=== PATIENT | male | born 1950 | race Caucasian/White ===

== ENCOUNTER 2016-09-06 07:49 | Emergency (ER) | payer MEDICARE ==
[2016-09-06] MEDS ORDERED: Acetaminophen TAB* 325 MG PO ONE (08:28)
--- NOTE | 2016-09-06 08:51 | UC ---
Knee Pain HPI - HPI Summary HPI Summary: patient sat on a low stool felt his left knee"snap like a branch" has had swelling and pain, not able to bear weight came in on crutches. - History of Current Complaint Chief Complaint: UCLowerExtremity Stated Complaint: KNEE PAIN Time Seen by Provider: 09/06/16 08:20 Hx Obtained From: Patient Onset/Duration: Sudden Onset, Lasting Days Severity Initially: Moderate Severity Currently: Severe Pain Intensity: 8 Pain Scale Used: 0-10 Numeric Character: Aching, Throbbing, Stiffness Aggravating Factor(s): Movement, Weight Bearing, Prolonged Standing, Stairs Alleviating Factor(s): Nothing Associated Signs And Symptoms: Positive: Swelling Able to Bear Weight: No - Risk Factors Septic Arthritis Risk Factor: Negative Gout Risk Factor: Age ^ 39, Male, DM, HTN - Allergies/Home Medications Allergies/Adverse Reactions: Allergies Allergy/AdvReac Type Severity Reaction Status Date / Time No Known Allergies Allergy Verified 11/29/14 11:17 PMH/Surg Hx/FS Hx/Imm Hx Previously Healthy: Yes Endocrine History Of: Reports: Diabetes - type 2 Denies: Thyroid Disease Cardiovascular History Of: Reports: Hypertension Denies: Cardiac Disorders Respiratory History Of: Denies: COPD, Asthma GI/ History Of: Denies: Ulcer - Surgical History Surgical History: Yes Surgery Procedure, Year, and Place: appendectomy, hernia repair, 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 - Family History Known Family History: Positive: Hypertension, Diabetes - Social History Alcohol Use: None Substance Use Type: None Smoking Status (MU): Heavy Every Day Tobacco Smoker Type: Cigarettes Amount Used/How Often: 1 1/2 PPD When Did the Patient Quit Smoking/Using Tobacco: 07/24/14 Household Exposure Type: Cigarettes Review of Systems Constitutional: Negative Skin: Negative Eyes: Negative ENT: Negative Respiratory: Negative Cardiovascular: Negative Gastrointestinal: Negative Genitourinary: Negative Motor: Negative Neurovascular: Negative Musculoskeletal: Arthralgia, Decreased ROM, Edema, Myalgia Neurological: Negative Psychological: Negative All Other Systems Reviewed And Are Negative: Yes Physical Exam Triage Information Reviewed: Yes Appearance: Well-Appearing, Well-Nourished, Pain Distress Vital Signs: Initial Vital Signs Temp 98.7 F 09/06/16 08:11 Pulse 94 09/06/16 08:11 Resp 16 09/06/16 08:11 BP 118/86 09/06/16 08:11 Pulse Ox 99 09/06/16 08:11 Vital Signs Reviewed: Yes Eye Exam: Normal Eyes: Positive: Conjunctiva Clear ENT Exam: Normal ENT: Positive: Normal ENT inspection, Hearing grossly normal, Pharynx normal, TMs normal Dental Exam: Normal Neck exam: Normal Neck: Positive: Supple, Nontender, No Lymphadenopathy Respiratory Exam: Normal Respiratory: Positive: Chest non-tender, Lungs clear, Normal breath sounds Cardiovascular Exam: Normal Cardiovascular: Positive: RRR, No Murmur, Pulses Normal Abdominal Exam: Normal Abdomen Description: Positive: Nontender, No Organomegaly, Soft Bowel Sounds: Positive: Present Musculoskeletal Exam: Normal Musculoskeletal: Positive: Strength Limited @ - left knee, not able to bear weight , RROM not able to perform, ROM Limited @ - extention and felxion are limited, Edema @ - generallied edema noted in left knee, Other: - + mc murrays, + pain with varus stress Neurological Exam: Normal Psychological Exam: Normal Skin Exam: Normal Knee Pain Course/Dx - Course Course Of Treatment: hx obtained, exam performed, tylenol given. xray of knee obtained. ian and knee immobilizer applied. follow up with Dr nathan , appointment given. - Differential Dx/Diagnosis Differential Diagnosis/HQI/PQRI: Cellulitis, Contusion, Dislocation, Fracture ( Closed), Internal Derangement Of Knee, Patellofemoral Syndrome, Sprain, Strain Provider Diagnoses: left knee swelling. osteochondral defect of lateral femoral condyle Discharge - Discharge Plan Condition: Stable Disposition: HOME Patient Education Materials: Swollen Knee Joint (ED) Additional Instructions: You have a follow up with the orthopedist today at 1:30 pm. Continue to use the knee immobilizer and crutches for pain managment Use the ian wrap for reduction of swelling tylenol for pain.
--- NOTE | 2016-09-06 09:05 | RAD ---
Indication: Left knee pain, knee injury. 4 views of the knee demonstrates degenerative changes of the lateral compartment. Question of a osteochondral defect in the lateral femoral condyle. Degenerative changes of the patellofemoral joint is noted. IMPRESSION: No definite fracture is noted. Osteochondral defect lateral femoral condyle.
[2016-09-06 09:10] VITALS: BP 140/78
== END 2016-09-06 09:49 | disposition home or self-care (01) ==
LOC: UCEAST 07:49
DX: M25.462 Effusion, left knee (principal); M21.962 Unspecified acquired deformity of left lower leg; Z87.891 Personal history of nicotine dependence
CPT/HCPCS: 99212; A9270-GY; G0463